=== PATIENT | female | born 1970 | race Two or more races ===

== ENCOUNTER 2021-12-09 16:10 | Emergency (ER) | payer MEDICAID ==
[~2021-12-09] VITALS: Ht 160 cm; Wt 97.5 kg
[2021-12-09] MEDS ORDERED: HYDROcodone-ACET 10/325MG TAB PO ONE (16:15)
[2021-12-09] MEDS ORDERED: IBU600T PO (17:58)
[2021-12-09 18:23] VITALS: BP 109/69
== END 2021-12-09 18:28 | disposition home or self-care (01) ==
LOC: ER 16:10
DX: G44.209 Tension-type headache, unspecified, not intractable (principal)
CPT/HCPCS: 70450